=== PATIENT | male | born 1970 | race Caucasian/White ===

== ENCOUNTER → 2017-01-08 05:00 | Outpatient (REF) | payer OTHER, SELFPAY ==
[2017-01-08 08:15] LABS: Hematocrit 34.7 % (40-54); Hemoglobin 11.7 g/dl (13.0-16.5); Mean Corp Hgb Conc 33.7 g/gl (32-36); Mean Corpuscular Hgb 32.1 pg (27.0-32.0); Mean Corpuscular Volume 95.1 fL (80-94); Mean Platelet Vol. 9.4 fl (6.2-12.0); Platelet Count 207 K/mm3 (150-450); RBC Distribution Width CV 14.1 % (11.6-14.6); RBC Distribution Width SD 48.4 fl (35.1-43.9); Red Blood Count 3.65 M/mm3 (4.6-6.2); White Blood Count 13.6 K/mm3 (4.4-11.0)
[2017-01-08 08:16] LABS: POSITIVE COUNT YES; POSITIVE DIFFERENTIAL NO; POSITIVE MORPHOLOGY YES
[2017-01-08 08:28] LABS: BUN 15 mg/dL (7-18); Creatinine, Serum 0.35 mg/dL (0.70-1.30); Glucose 180 mg/dL (70-110)
[2017-01-08 08:29] LABS: ALB/GLOB Ratio 0.9 RATIO (0.9-2.4); AST(SGOT) 22 U/L (15-37); Alanine Aminotransfer ALT/SGPT 64 U/L (12-78); Albumin, Serum 2.3 g/dL (3.4-5.0); Alkaline Phosphatase 80 U/L (45-117); Anion Gap 9 (5-15); BUN/Creat Ratio 43.2 RATIO (10-20); Chloride 99 mmol/L (98-107); EST Glomerular Filtration Rate 289 mL/min (>60); Est Glom Filt Rate - Afr Amer 350 mL/min (>60); Globulin 2.6 g/dL (2.3-3.5); Potassium 3.9 mmol/L (3.5-5.1); Protein, Total 4.9 g/dL (6.4-8.2); Sodium Level 137 mmol/L (136-145)
[2017-01-08 08:36] LABS: Differential Indicated MANUAL DIFF
[2017-01-08 08:40] LABS: Lymphocyte 12 % (19-41); Metamyelocyte 7 % (0-1); Monocyte 1 % (0-10); Myelocyte 3 (0-0); Neutrophil-Band 2 % (0-5); Neutrophil-Segmented 75 % (47-70); Nucleated Red Bld Cells,Manual 1 % (0-5)
[2017-01-08 08:41] LABS: Scan Smear per Review Criteria MANUAL DIFF
[2017-01-08 08:52] LABS: Lactic Acid 3.2 mmol/L (0.4-2.0)
[2017-01-10 15:14] LABS: Pathologist Review Reviewed
== END ==
LOC: OLS.ACW300 05:00
PROVIDERS: Visit Provider Family Medicine
DX: A41.01 Sepsis due to Methicillin susceptible Staphylococcus aureus (principal); R27.9 Unspecified lack of coordination; M62.81 Muscle weakness (generalized); C71.9 Malignant neoplasm of brain, unspecified; D72.829 Elevated white blood cell count, unspecified
CPT/HCPCS: 36415; 80053; 83605; 85025